=== PATIENT | female | born 1980 | race Caucasian/White ===

== ENCOUNTER 2016-06-08 06:57 | Inpatient (IN) ==
[2016-06-08] MEDS ORDERED: FAMOTIDINE 20 MG/2 ML VIAL IV ONE (07:18)
[2016-06-08] MEDS ORDERED: CITRIC ACID/SODIUM CITRATE 30 ML UDCUP PO ONE (07:18)
[2016-06-08] MEDS ORDERED: ceFAZolin 2,000 MG in PREMIX 1 EACH IV ONE (07:18)
[2016-06-08] MEDS ORDERED: LACTATED RINGERS 1,000 ML IV SCH ×2 (07:30→11:30)
[2016-06-08] MEDS ORDERED: OXYTOCIN/LR 30 UNIT/1,000 ML BAG IV ONE (07:37)
[2016-06-08] MEDS ORDERED: OXYTOCIN 10 UNIT/ML VIAL IM ONE (07:37)
[2016-06-08] MEDS ORDERED: LACTATED RINGERS 1,000 ML IV ONE (07:42)
[2016-06-08 07:47] LABS: Basophils # 0.1 10*3/uL (0.0-0.2); Basophils % 0.8 % (0.0-0.8); Eosinophils # 0.5 10*3/uL (0.0-0.87); Eosinophils % 3.1 % (0.00-10.9); Hematocrit 38.7 VOL% (35.7-47.0); Immature Granulocytes % 0.6 %; Immature Granulocytes Absolute 0.09 #; Lymphocytes # 3.8 10*3/uL (1.4-4.0); Lymphocytes % 26.5 % (21.3-54.2); Mean Corpuscular HGB Conc 33.6 GM/DL (32-36); Mean Corpuscular Hemoglobin 31 PG (27-34); Mean Corpuscular Volume 91.9 FL (87-102); Mean Platelet Volume 8.6 FL (9.6-12.0); Neutrophils # 8.9 10*3/uL (1.4-7.4); Platelet Count 560 T/CUMM (130-400); Red Blood Count 4.21 MC/CUMM (3.8-5.5); Red Cell Distribution Width 13.7 % (9.3-17.3); White Blood Count 14.4 T/CUMM (4-12)
[2016-06-08 07:56] LABS: PT Patient Result 10.1 SECS; Partial Thromboplastin Time 28.2 SECS (0-40)
[2016-06-08 08:23] LABS: Alanine Aminotransferase 42 U/L (13-56); Albumin 2.6 G/DL (3.4-5.0); Alkaline Phosphatase 215 U/L (45-117); Aspartate Amino Transferase 30 U/L (0-37); Bilirubin,Total < 0.39 MG/DL (0.2-1.0); Blood Urea Nitrogen 8 MG/DL (7-18); Calcium 9.2 MG/DL (8.5-10.1); Glucose 103 MG/DL (74-106); Osmolality,Calculated 280.1 MOS/KG (273-304); Potassium 4.5 MMOL/L (3.5-5.1); Sodium 142 MMOL/L (136-145); Total Protein 6.9 G/DL (6.4-8.3)
--- NOTE | 2016-06-08 11:17 | OB/GYN History & Physical ---
History of Present Illness History of present illness: Ms. Chase is a 35 year old female 5 AB 2 living 2 approximate 36+ weeks gestation who presents with a demise. This patient [facility] and then was evaluated by the maternal medicine physician in [place] for advanced maternal placed. 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 On a routine visit cardiac activity was not obtain ultrasound was also performed with demonstrated no evidence of cardiac activity. This patient was admitted on the morning of June 08 for repeat section. Risks benefits were thoroughly discussed she is in full agreement. Home Medications Medication Instructions Recorded Confirmed Type Aspirin Chew Tab 1 tablet PO DAILY 06/08/16 06/08/16 History Heparin Sodium,Porcine/Pf [Heparin 10,000 units SUBCUT BID 06/08/16 06/08/16 History Sod 5,000 Unit/ 0.5 ml] Pnv95/Ferrous Fumarate/FA 1 tablet PO DAILY 06/08/16 06/08/16 History [ Tablet] Allergies Allergy/AdvReac Type Severity Reaction Status Date / Time No Known Allergies Allergy Verified 05/25/16 09:00 Medical,Surgical,& Family Hx - Family History Family History: Reports;: Family Heart Disease (father) Denies;: Family Anesthesia Reaction, Family Cancer, Family Diabetes, Family Hematology, Family Hypertension, Family Psychiatric Problems, Family Stroke, Additional Family History - Social History Smoking Status: Current every day smoker Exam [employer] - Constitutional General appearance: no acute distress - Antepartum / Post Antpartum Exam Cervix -Dilatation: Thick and closed - Head Head exam: Present: normal inspection - Eye Eye exam: Present: EOMI Pupils: Present: BARB - ENT ENT exam: Present: normal exam - Neck Neck exam: Present: normal inspection - Respiratory Respiratory exam: Present: clear to auscultation bilaterally - Breast Breasts: as per HPI Menstruation: as per HPI - Cardiovascular Cardiovascular exam: Present: regular rate and rhythm - GI/Abdominal GI/Abdominal exam: Present: normal bowel sounds - Extremities Exam Extremities exam: Present: normal inspection - Back Exam Back exam: Present: normal inspection - Neurological Exam Neurological exam: Present: alert, oriented X3 - Psychiatric Psychiatric exam: Present: normal affect - Skin Skin exam: Present: normal color Assessment and Plan (1) demise Status: Acute Assessment and plan: Patient presents with a known demise 36+37 weeks gestation.. Previous section. Patient scheduled for repeat section risks benefits thoroughly discussed she is in full agreement. Current Visit: Yes Results - Labs CBC & BMP: 06/08/16 07:39 06/08/16 07:39
--- NOTE | 2016-06-08 11:27 | Operative Note ---
Date of procedure: 06/08/16 Procedure: Preoperative diagnosis: Uterine , 37 weeks gestation Postoperative diagnosis: Same Anesthesia:[] Regional anesthesia Estimated blood loss: []300 mL Surgeon: Dr. Quezada Findings: []Intrauterine , delivery time is at 1049, 6 pounds 2-1/2 ounce male infant, the umbilical cord was completely occluded from the abdominal wall at the insertion site to the insertion on the placenta. The placenta had appearances of multiple areas of calcifications as well which will be sent to lab for further evaluation Complications: None Procedure: Low transverse section The patient was taken to the operating suite heart tones were obtained prior to and after regional anesthesia was obtained. She was placed in supine position her abdomen was prepped and draped in usual manner for major abdominal surgery. Through an abdominal incision the skin, subcutaneous, fascial layer and peritoneal the abdomen was entered. The bladder flap was created and a low transverse incision was made.. Fluid was meconium staining and normal amount X , Apgars, the placenta was delivered and sent to lab for further evaluation. Injected with intrauterine Pitocin. The first layer of the uterus was closed with #1 Vicryl in a continuous locking manner. Close to imbricate the first layer with #1 Vicryl. The peritoneum was approximated with #2-0 Vicryl.[] All the last sponges and instruments were accounted for 2.) #2-0 Vicryl. Fascia was approximated with #0-0 Maxon.. The skin was approximated with laura. She tolerated procedure well and was taken to recovery room in stable condition. Surgeon / Physician: Aggie Quezada Results - Labs CBC & BMP: 06/08/16 07:39 06/08/16 07:39 Discharge Plan - Discharge Medications No Action Heparin Sodium,Porcine/Pf [Heparin Sod 5,000 Unit/ 0.5 ml] 10,000 units SUBCUT BID Pnv95/Ferrous Fumarate/FA [ Tablet] 1 tablet PO DAILY Aspirin Chew Tab 1 tablet PO DAILY - Follow Up or Referral - Forms/Instructions
[2016-06-08] MEDS ORDERED: ACETAMINOPHEN 325 MG TABLET PO PRN (11:28)
[2016-06-08] MEDS ORDERED: SIMETHICONE CHEW 80 MG TABLET PO PRN (11:28)
[2016-06-08] MEDS ORDERED: ONDANSETRON 4 MG/2 ML VIAL IV PRN (11:28)
[2016-06-08] MEDS ORDERED: RHO(D) IMMUNE GLOBULIN 300 MCG SYRINGE IM ONE (11:28)
[2016-06-08] MEDS ORDERED: MAGNESIUM HYDROXIDE SUSP 30 ML UDCUP PO PRN (11:28)
[2016-06-08] MEDS ORDERED: OXYTOCIN/LR 20 UNIT/1,000 ML BAG IV ONE (11:28)
[2016-06-08] MEDS ORDERED: fentaNYL 100 MCG/2 ML VIAL ONE (12:54)
[2016-06-08] MEDS ORDERED: ePHEDrine 50 MG/ML AMP ONE (12:55)
[2016-06-08] MEDS ORDERED: MORPHINE 10 MG/10 ML VIAL ONE (12:55)
[2016-06-08] MEDS ORDERED: BUTORPHANOL 1 MG/ML VIAL ONE (13:11)
[2016-06-08] MEDS ORDERED: METHYLERGONOVINE 0.2 MG/1 ML AMP ONE (13:11)
[2016-06-08] MEDS ORDERED: LIDOCAINE 1% 50 ML VIAL ONE (13:12)
[2016-06-08 13:24] LABS: Apearance,Urine CLEAR (Clear); Bilirubin,Urine Negative (Negative); Blood, Urine Small mg/dL (Negative); Glucose,Urine (UA) Negative (Negative); Ketones,Urine Negative (Negative); Nitrite,Urine Negative (Negative); Protein,Urine Negative; RBC,Urine 5 /HPF (0-4); Urine Color Yellow (Yellow); Urine Specific Gravity 1.017 (1.001-1.035); Urine Urobilinogen < 2.0 EU/DL (0.2-1.0); WBC,Urine <1 /HPF (0-6)
[2016-06-08] MEDS ORDERED: ZALEPLON 5 MG CAPSULE PO PRN (18:44)
[2016-06-08 19:55] LABS: Hematocrit 37.9 VOL% (35.7-47.0); Hemoglobin 12.5 GM/DL (12.0-16.0)
[2016-06-08] MEDS: DOCUSATE SODIUM 100 MG CAPSULE PO SCH (20:52)
[2016-06-09] MEDS ORDERED: LACTATED RINGERS 1,000 ML IV SCH (01:00)
[2016-06-09 05:13] LABS: Basophils # 0.1 10*3/uL (0.0-0.2); Basophils % 0.5 % (0.0-0.8); Eosinophils # 0.3 10*3/uL (0.0-0.87); Eosinophils % 1.8 % (0.00-10.9); Hematocrit 38.1 VOL% (35.7-47.0); Hemoglobin 12.7 GM/DL (12.0-16.0); Immature Granulocytes % 0.5 %; Immature Granulocytes Absolute 0.07 #; Lymphocytes # 3.6 10*3/uL (1.4-4.0); Lymphocytes % 24.1 % (21.3-54.2); Mean Corpuscular HGB Conc 33.3 GM/DL (32-36); Mean Corpuscular Hemoglobin 31 PG (27-34); Mean Corpuscular Volume 91.4 FL (87-102); Mean Platelet Volume 8.7 FL (9.6-12.0); Monocytes % 6.7 % (1.7-12.7); Neutrophils % 66.4 % (38.7-73.9); Platelet Count 502 T/CUMM (130-400); Red Blood Count 4.17 MC/CUMM (3.8-5.5); Red Cell Distribution Width 13.9 % (9.3-17.3); White Blood Count 15.1 T/CUMM (4-12)
[2016-06-09] MEDS: DOCUSATE SODIUM 100 MG CAPSULE PO SCH ×2 (08:57→21:12)
[2016-06-09] MEDS: MULTIVITAMIN (PRENATAL) TABLET PO SCH (08:57)
--- NOTE | 2016-06-09 10:13 | OB/GYN Progress Note ---
Assessment and Plan (1) S/P repeat low transverse Status: Acute Assessment and plan: Initiate routine postop orders. Current Visit: Yes (2) demise Status: Acute Current Visit: Yes HAT FORMER - PN: Subj Interval history: Stable with no complaints at present. Exam HAT FORMER - Constitutional Vitals: Vital Signs Temp Pulse Resp BP Pulse Ox 06/09/16 07:19 98.4 F 80 18 132/80 99 06/09/16 04:20 18 06/09/16 03:25 97.6 F 78 18 97/58 96 06/08/16 23:45 97.8 F 80 16 113/71 96 06/08/16 20:00 96.9 F L 90 20 101/62 98 06/08/16 17:15 93 H 20 89/59 98 06/08/16 16:15 97.2 F L 85 20 103/61 100 06/08/16 15:10 88 20 104/65 100 06/08/16 14:45 84 20 99/58 100 06/08/16 14:15 97.7 F 89 20 109/64 100 06/08/16 12:00 97 F L 89 22 111/72 General appearance: no acute distress - Antepartum / Post Post Exam Breast: bilateral: normal Abdomen obstetrics: Present: bowel sounds normal Vagina: Present: normal moisture, discharge (light lochia rubra) Uterus exam: Present: enlarged (FF ML) - Gyencological / Post Surgical Post Surgical Exam Lungs: bilateral: normal Chest: Normal S1, Normal S2 Extremities HAT FORMER: Present: normal Abdomen obstetrics progress note: Present: normal appearance, soft Incision OB: Present: normal, intact - Head Head exam: Present: normal inspection - Respiratory Respiratory exam: Present: clear to auscultation bilaterally - Cardiovascular Cardiovascular exam: Present: regular rate and rhythm - GI/Abdominal GI/Abdominal exam: Present: normal bowel sounds, soft - Extremities Exam Extremities exam: Present: normal inspection - Neurological Exam Neurological exam: Present: alert, oriented X3 - Psychiatric Psychiatric exam: Present: normal affect, depressed - Skin Skin exam: Present: normal color, warm Results - Labs CBC & BMP: 06/09/16 05:02 06/08/16 07:39
[2016-06-09] MEDS ORDERED: LORazepam 1 MG TABLET PO PRN ×5 (13:28→19:05)
[2016-06-09] MEDS: SERTRALINE 50 MG TABLET PO SCH (13:59)
[2016-06-09] MEDS: IBUPROFEN 800 MG TABLET PO PRN (16:54)
[2016-06-10 07:22] VITALS: BP 112/86
[2016-06-10] MEDS: IBUPROFEN 800 MG TABLET PO PRN (08:35)
[2016-06-10] MEDS: SERTRALINE 50 MG TABLET PO SCH (08:35)
[2016-06-10] MEDS: DOCUSATE SODIUM 100 MG CAPSULE PO SCH (08:35)
[2016-06-10] MEDS: MULTIVITAMIN (PRENATAL) TABLET PO SCH (08:35)
--- NOTE | 2016-06-10 10:17 | Discharge Summary ---
Hospital Course - Hospital Course Hospital Course: Ms. Chase is a 35-year-old female who presented to the labor department because of a known demise that was discovered on her visit to the office. She had a repeat section. She has followed a normal postoperative course and she desires to go home today. Her bleeding is minimal with no odor. Her incision is well approximated without signs of infection. She is followed without difficulty. She has had a normal bowel movement. Her vital signs the lab values are stable. She will be discharged to home with prescriptions for pain and follow-up appointment in our office. Diagnosis - Discharge Diagnosis (1) S/P repeat low transverse Status: Acute (2) demise Status: Acute Specialty Discharge - Follow Up or Referrals Follow up with: Aggie Quezada MD [Physician] - 2 Weeks Discharge Plan - Discharge Data Disposition: Disch To Home/Self Care Condition at Discharge: Stable Discharge Diet: advance to your usual diet, regular diet Activity: increase activity as tolerated, no lifting, no prolonged standing Hygiene: may shower Weight Bearing at Discharge: partial weight bearing Contact your physician if you experience:: fever over 101, pain uncontrolled by pain medications - Discharge Medications New LORazepam TAB [Ativan Tab] 1 mg PO Q4H PRN #20 tablet PRN Reason: Anxiety HYDROcodone/ACETAMIN 5-325 [[place] 5-325] 2 tablet PO Q6H PRN #30 tablet PRN Reason: Pain Severe (8-10) Ibuprofen Tab [Motrin Tab] 800 mg PO Q8H PRN #30 tablet PRN Reason: Pain Severe (8-10) Sertraline [Zoloft] 50 mg PO DAILY #30 tablet No Action Heparin Sodium,Porcine/Pf [Heparin Sod 5,000 Unit/ 0.5 ml] 10,000 units SUBCUT BID Pnv95/Ferrous Fumarate/FA [ Tablet] 1 tablet PO DAILY Aspirin Chew Tab 1 tablet PO DAILY - Follow Up or Referral - Forms/Instructions Instructions: Section (DC), Perineal Care (DC), Bleeding (DC) Exam - Constitutional Vitals: Period Temp Pulse Resp BP Sys/Eisenberg Pulse Ox Last 24 Hr 96.4 F-98.8 F 78-101 18-20 105-116/61-86 94-99 General appearance: no acute distress - Head Head exam: Present: normal inspection - Respiratory Respiratory exam: Present: clear to auscultation bilaterally - Cardiovascular Cardiovascular exam: Present: regular rate and rhythm - GI/Abdominal GI/Abdominal exam: Present: normal bowel sounds, soft - Extremities Exam Extremities exam: Present: normal inspection - Back Exam Back exam: Present: normal inspection - Neurological Exam Neurological exam: Present: alert, oriented X3 - Psychiatric Psychiatric exam: Present: normal affect, normal mood - Skin Skin exam: Present: normal color, warm DS: Provider Date of admission: 06/08/16 06:57 Primary care physician: Seble Steiner NP Attending physician on admission: Aggie Quezada MD Consults: 06/08/16 07:19 Consult to Anesthesiology [CONS] Routine Consulting Provider: Reason for Anesthesiology: Pre-op Clearance 06/08/16 08:40 Consult to Dietitian [CONS] Routine Reason for Dietitian: Dietary Consult Consult Comment: demise, does not need to see Discharging clinician: Lola Arreguin CNM Expected date of discharge: 06/10/16
--- NOTE | 2016-06-10 11:42 | Pathology Report from [facility] ---
ACCESSION # : [id number] PATIENT NAME : Lyle Yee ORDERING DR : BIJAL GRAHAM MD CLINICAL HX: IUP @ 36.4 wk, intrauterine demise, prev. POST-OP DX: Same SPECIMEN INFO: Placenta GROSS DESCRIPTION: Received fresh labeled "LYLE YEE & PLACENTA" is a 394 gm placenta measuring 19.5 x 14.2 x 2.1 cm. The membranes are pink yun and translucent. The umbilical cord is pericentrally inserted, dusky red in color and contains three vessels measuring 20.2 cm. The surface is cheney blue with central areas of chorionic fibrin present measuring 1.1 cm. The maternal surface is beefy red with mildly disrupted cotyledons. A large area of fibrosis is present measuring approx. 5.6 cm. A serosal area of peripheral flattening noted measuring 11 x 3.5 cm. Areas of fibrosis are present on sectioning. Sections submitted A- membranes and cord, B- and maternal surfaces. DIAGNOSIS FOR LYLE YEE: PLACENTA, MEMBRANES, UMBILICAL CORD: Focal placental infarction with dystrophic calcification, blood and fibrin clots. Tri-vessel umbilical cord, pericentrally inserted. Membranes with focal acute and chronic inflammation and attached blood. SERVICE DATE: 06/09/2016 REPORT DATE: 06/10/2016 PATHOLOGIST: Juan Carlos Payan
--- NOTE | 2016-06-10 14:41 | Pathology Report from [facility] ---
ACCESSION # : [id number] PATIENT NAME : Lyle Yee ORDERING DR : BIJAL GRAHAM MD CLINICAL HX: IUP @ 36.4 wk, intrauterine demise, prev. POST-OP DX: Same SPECIMEN INFO: #1 Placenta #2 Fetus GROSS DESCRIPTION: #1 Received fresh labeled "LYLE YEE & PLACENTA" is a 394 gm placenta measuring 19.5 x 14.2 x 2.1 cm. The membranes are pink yun and translucent. The umbilical cord is pericentrally inserted, dusky red in color and contains three vessels measuring 20.2 cm. The surface is cheney blue with central areas of chorionic fibrin present measuring 1.1 cm. The maternal surface is beefy red with mildly disrupted cotyledons. A large area of fibrosis is present measuring approx. 5.6 cm. A serosal area of peripheral flattening noted measuring 11 x 3.5 cm. Areas of fibrosis are present on sectioning. Sections submitted A- membranes and cord, B- and maternal surfaces.#2 Received fresh labeled "LYLE YEE" is a 2730 gm male fetus with a crown to rump measurement of 29.5 cm and a crown to heel measurement of 36.5 cm. No anomalies are grossly appreciated, submitted for gross exam only. DIAGNOSIS FOR LYLE YEE: PLACENTA, MEMBRANES, UMBILICAL CORD: Focal placental infarction with dystrophic calcification, blood and fibrin clots. Tri-vessel umbilical cord, pericentrally inserted. Membranes with focal acute and chronic inflammation and attached blood. SERVICE DATE: 06/09/2016 REPORT DATE: 06/10/2016 SUPPLEMENTAL TEXT: Male fetus (2630 gms), gross only. SUPPLEMENTAL DATE: 06/09/2016 PATHOLOGIST: Juan Carlos Payan
== END 2016-06-10 13:00 | disposition home or self-care (01) | DRG 765 ==
LOC: N.LD 06:57 → N.OB 14:16
PROVIDERS: ADMIT Obstetrics & Gynecology; ATTEND Obstetrics & Gynecology
PROC: LDCSECT (ICD-10-PCS; 2016-06-08 14:00)

== ENCOUNTER 2019-08-29 21:01 | Inpatient (IN) ==
[2019-08-29 21:37] LABS: Apearance,Urine CLEAR (Clear); Bacteria,Urine Occasional /HPF (Few); Bilirubin,Urine Negative (Negative); Blood, Urine Moderate mg/dL (Negative); Glucose,Urine (UA) Negative (Negative); Ketones,Urine Negative (Negative); Mucus,Urine Occasional /LPF (Occasional); Nitrite,Urine Negative (Negative); Protein,Urine Negative; RBC,Urine 10 /HPF (0-4); Squamous Epithelial Cell,Urine Occasional /HPF (0-10); Urine Color Yellow (Yellow); Urine Urobilinogen < 2.0 EU/DL (0.2-1.0); WBC,Urine 7 /HPF (0-6)
[2019-08-29] MEDS ORDERED: LACTATED RINGERS 1,000 ML IV ONE (22:31)
[2019-08-30] MEDS: LACTATED RINGERS 1,000 ML IV SCH ×2 (00:35→12:08)
[2019-08-30] MEDS: BETAMETH SODIUM PHOS/ACETATE 30 MG/5 ML VIAL IM SCH ×2 (08:26→20:30)
[2019-08-30] MEDS ORDERED: ACETAMINOPHEN 500 MG TABLET PO PRN (08:47)
[2019-08-30] MEDS ORDERED: ONDANSETRON 4 MG/2 ML VIAL IV PRN (20:11)
[2019-08-30] MEDS ORDERED: LACTATED RINGERS 1,000 ML IV SCH (20:30)
[2019-08-30 20:36] LABS: Basophils % 0.3 % (0.0-0.8); Hematocrit 42.1 VOL% (35.7-47.0); Hemoglobin 13.7 GM/DL (12.0-16.0); Immature Granulocytes % 1.1 %; Immature Granulocytes Absolute 0.15 #; Lymphocytes # 2.6 10*3/uL (1.4-4.0); Lymphocytes % 19.5 % (21.3-54.2); Mean Corpuscular HGB Conc 32.5 GM/DL (32-36); Mean Corpuscular Volume 96.8 FL (87-102); Monocytes % 4.8 % (1.7-12.7); Neutrophils % 74.3 % (38.7-73.9); Platelet Count 343 T/CUMM (130-400); Red Blood Count 4.35 MC/CUMM (3.8-5.5); White Blood Count 13.1 T/CUMM (4-12)
[2019-08-31] MEDS ORDERED: fentaNYL 100 MCG/2 ML VIAL IV ONE (05:51)
[2019-08-31] MEDS ORDERED: ONDANSETRON 4 MG/2 ML VIAL IV ONE (05:51)
[2019-08-31] MEDS ORDERED: PROMETHAZINE 25 MG/1 ML VIAL IM ONE (05:51)
[2019-08-31] MEDS ORDERED: CITRIC ACID/SODIUM CITRATE 30 ML UDCUP PO ONE (05:51)
[2019-08-31] MEDS ORDERED: diphenhydrAMINE 50 MG/1 ML VIAL IV PRN ×3 (05:51→20:24)
[2019-08-31] MEDS ORDERED: FAMOTIDINE 20 MG/2 ML VIAL IV ONE (05:51)
[2019-08-31] MEDS ORDERED: MIDAZOLAM 2 MG/2 ML VIAL IV ONE (05:51)
[2019-08-31] MEDS ORDERED: hydrOXYzine HCL 25 MG/1 ML VIAL IM PRN (05:51)
[2019-08-31] MEDS ORDERED: ePHEDrine 50 MG/ML AMP IV PRN ×2 (05:51)
[2019-08-31] MEDS ORDERED: KETAMINE 500 MG/10 ML VIAL IV ONE (05:51)
[2019-08-31] MEDS ORDERED: OXYTOCIN/LR 30 UNIT/1,000 ML BAG IV ONE (06:13)
[2019-08-31] MEDS ORDERED: OXYTOCIN 10 UNIT/ML VIAL IM ONE (06:13)
[2019-08-31] MEDS ORDERED: ceFAZolin 3,000 MG in SYRINGE 1 EACH IV SCH (07:00)
[2019-08-31] MEDS ORDERED: SCOPOLAMINE 1.5 MG PATCH TRANSDERM ONE (07:15)
[2019-08-31 09:22] LABS: Apearance,Urine CLEAR (Clear); Bacteria,Urine Occasional /HPF (Few); Bilirubin,Urine Negative (Negative); Blood, Urine Small mg/dL (Negative); Glucose,Urine (UA) Negative (Negative); Ketones,Urine Negative (Negative); Mucus,Urine Occasional /LPF (Occasional); Nitrite,Urine Positive (Negative); Protein,Urine Negative; RBC,Urine 3 /HPF (0-4); Squamous Epithelial Cell,Urine Occasional /HPF (0-10); Urine Color Yellow (Yellow); Urine Specific Gravity 1.017 (1.001-1.035); Urine Urobilinogen < 2.0 EU/DL (0.2-1.0); WBC,Urine 2 /HPF (0-6)
[2019-08-31] MEDS ORDERED: BUPIVACAINE SPINAL 0.75% 2 ML AMP SPINAL ONE (09:37)
[2019-08-31] MEDS ORDERED: ONDANSETRON 4 MG/2 ML VIAL ONE (09:38)
[2019-08-31] MEDS ORDERED: MORPHINE 10 MG/10 ML VIAL ONE (09:38)
[2019-08-31] MEDS ORDERED: ePHEDrine 50 MG/ML AMP ONE (09:38)
[2019-08-31] MEDS ORDERED: PHENYLEPHRINE 1 MG/10 ML SYRINGE IV ONE (09:38)
[2019-08-31] MEDS ORDERED: SIMETHICONE CHEW 80 MG TABLET PO PRN (09:43)
[2019-08-31] MEDS ORDERED: ACETAMINOPHEN 325 MG TABLET PO PRN (09:43)
[2019-08-31] MEDS ORDERED: ONDANSETRON 4 MG/2 ML VIAL IV PRN (09:43)
[2019-08-31] MEDS ORDERED: RHO(D) IMMUNE GLOBULIN 300 MCG SYRINGE IM ONE (09:43)
[2019-08-31] MEDS ORDERED: MAGNESIUM HYDROXIDE SUSP 30 ML UDCUP PO PRN (09:43)
[2019-08-31] MEDS ORDERED: OXYTOCIN/LR 20 UNIT/1,000 ML BAG IV ONE (09:43)
[2019-08-31] MEDS ORDERED: ceFAZolin 1,000 MG in SYRINGE 1 EACH IV SCH (10:00)
[2019-08-31] MEDS ORDERED: LACTATED RINGERS 1,000 ML IV SCH (10:00)
[2019-08-31] MEDS: ceFAZolin 1,000 MG in SYRINGE 1 EACH IV SCH (15:08)
[2019-08-31 15:25] LABS: Basophils % 0.1 % (0.0-0.8); Hematocrit 39.6 VOL% (35.7-47.0); Hemoglobin 12.8 GM/DL (12.0-16.0); Immature Granulocytes % 0.6 %; Immature Granulocytes Absolute 0.13 #; Lymphocytes # 3.1 10*3/uL (1.4-4.0); Lymphocytes % 15.3 % (21.3-54.2); Mean Corpuscular HGB Conc 32.3 GM/DL (32-36); Mean Corpuscular Volume 95.9 FL (87-102); Mean Platelet Volume 10.2 FL (9.6-12.0); Monocytes % 7.6 % (1.7-12.7); Neutrophils % 76.4 % (38.7-73.9); Platelet Count 314 T/CUMM (130-400); Red Blood Count 4.13 MC/CUMM (3.8-5.5); Red Cell Distribution Width 14.2 % (9.3-17.3); White Blood Count 20.1 T/CUMM (4-12)
[2019-08-31 15:47] LABS: Lymphocytes 15 % (20-55); Segmented Neutrophils 77 % (50-85); Total Cells Counted 100
[2019-08-31 15:48] LABS: Platelet Estimate Adequate
[2019-08-31] MEDS: DOCUSATE SODIUM 100 MG CAPSULE PO SCH (20:36)
[2019-09-01] MEDS: ceFAZolin 1,000 MG in SYRINGE 1 EACH IV SCH (00:03)
[2019-09-01] MEDS: IBUPROFEN 800 MG TABLET PO PRN ×2 (03:53→17:35)
[2019-09-01] MEDS ORDERED: METOCLOPRAMIDE 10 MG TABLET PO SCH ×2 (06:00→08:00)
[2019-09-01 07:16] LABS: Basophils # 0.1 10*3/uL (0.0-0.2); Basophils % 0.3 % (0.0-0.8); Eosinophils % 0.2 % (0.00-10.9); Hematocrit 39.5 VOL% (35.7-47.0); Hemoglobin 12.9 GM/DL (12.0-16.0); Immature Granulocytes % 0.7 %; Immature Granulocytes Absolute 0.11 #; Lymphocytes # 4.9 10*3/uL (1.4-4.0); Lymphocytes % 29.5 % (21.3-54.2); Mean Corpuscular HGB Conc 32.7 GM/DL (32-36); Mean Corpuscular Volume 97.3 FL (87-102); Mean Platelet Volume 10.2 FL (9.6-12.0); Monocytes % 8.1 % (1.7-12.7); Neutrophils % 61.2 % (38.7-73.9); Platelet Count 324 T/CUMM (130-400); Red Blood Count 4.06 MC/CUMM (3.8-5.5); Red Cell Distribution Width 14.3 % (9.3-17.3); White Blood Count 16.7 T/CUMM (4-12)
[2019-09-01] MEDS: MULTIVITAMIN (PRENATAL) TABLET PO SCH (09:00)
[2019-09-01] MEDS: DOCUSATE SODIUM 100 MG CAPSULE PO SCH ×3 (09:00→23:52)
[2019-09-01] MEDS: MAGNESIUM HYDROXIDE SUSP 30 ML UDCUP PO SCH ×3 (09:00→23:52)
[2019-09-01] MEDS: METOCLOPRAMIDE 10 MG TABLET PO SCH ×2 (09:00→17:30)
[2019-09-02] MEDS: IBUPROFEN 800 MG TABLET PO PRN ×2 (00:02→06:35)
[2019-09-02] MEDS: DOCUSATE SODIUM 100 MG CAPSULE PO SCH ×2 (09:00)
[2019-09-02] MEDS: MAGNESIUM HYDROXIDE SUSP 30 ML UDCUP PO SCH ×2 (09:00)
[2019-09-02] MEDS: MULTIVITAMIN (PRENATAL) TABLET PO SCH (09:00)
[2019-09-02 10:46] VITALS: BP 130/69
[2019-09-02] MEDS ORDERED: DIPH/TET/ACEL PERT BOOSTER VACCINE 0.5 ML VIAL IM ONE (12:46)
== END 2019-09-02 14:15 | disposition home or self-care (01) | DRG 784 ==
LOC: N.LDOUT 21:01 → N.LD 21:04 → N.OB 08-31 14:12
PROVIDERS: ADMIT Obstetrics & Gynecology; ATTEND Obstetrics & Gynecology